=== PATIENT | male | born 1990 ===

== ENCOUNTER → 2017-08-12 | Emergency (ER) | payer OTHER ==
[~2017-08-12] VITALS: Ht 175.3 cm; Wt 99.8 kg
[~2017-08-12] MED LIST: DOLOGESIC 500-1 EACH PO; GILTUSS COUGH-118 ML PO
== END | disposition home or self-care (01) ==
LOC: ER 12:45
DX: B34.9 Viral infection, unspecified (principal)

== ENCOUNTER 2017-08-13 20:49 | Emergency (ER) | payer OTHER ==
[~2017-08-13] VITALS: Ht 175.3 cm; Wt 99.8 kg
[2017-08-14] MEDS ORDERED: DOLOGESIC 500-1 EACH PO (04:00)
[2017-08-14] MEDS ORDERED: GILTUSS COUGH-118 ML PO (04:00)
== END 2017-08-14 03:58 | disposition home or self-care (01) ==
LOC: ER 20:49
DX: J11.1 Influenza due to unidentified influenza virus with other respiratory manifestations (principal); K52.9 Noninfective gastroenteritis and colitis, unspecified

== ENCOUNTER 2022-03-14 21:04 | Emergency (ER) | payer OTHER ==
[~2022-03-14] VITALS: Ht 175.3 cm; Wt 99.8 kg
[2022-03-15] MEDS ORDERED: TAMS0.4C PO (04:20)
[2022-03-15] MEDS ORDERED: ULTRAM50 MG PO (04:20)
[2022-03-15] MEDS ORDERED: CEPHALEXIN500 MG PO (04:20)
== END 2022-03-15 04:32 ==
LOC: ER 21:04
DX: N20.1 Calculus of ureter (principal); Z87.442 Personal history of urinary calculi; N39.0 Urinary tract infection, site not specified

== ENCOUNTER 2022-03-17 11:51 | Emergency (ER) | payer OTHER ==
[~2022-03-17] VITALS: Ht 175.3 cm; Wt 99.8 kg
[~2022-03-17 11:51] MED LIST changes: +CEPHALEXIN500 MG PO; +TAMS0.4C PO; +ULTRAM50 MG PO
[2022-03-17] MEDS ORDERED: CIPRO250 MG PO (20:06)
[2022-03-17] MEDS ORDERED: ZOFRAN8 MG PO (20:06)
[2022-03-17] MEDS ORDERED: KETO10TA2 PO (20:06)
[2022-03-17] MEDS ORDERED: PEPCID AC20 MG PO (20:06)
== END 2022-03-17 20:11 | disposition home or self-care (01) ==
LOC: ER 11:51
DX: K29.70 Gastritis, unspecified, without bleeding (principal); R11.10 Vomiting, unspecified; N20.1 Calculus of ureter

== ENCOUNTER 2022-04-11 11:25 | Inpatient (IN) | payer OTHER ==
[~2022-04-11] VITALS: Ht 152.4 cm; Wt 97.5 kg
[~2022-04-11 11:25] MED LIST changes: +CIPRO250 MG PO; +KETO10TA2 PO; +PEPCID AC20 MG PO; +ZOFRAN8 MG PO
[2022-04-11] MEDS ORDERED: SULFAMETHOXAZOL20 ML PO (12:26)
[2022-04-11] MEDS ORDERED: MUPIROCIN15 GM TOP (12:27)
--- NOTE | 2022-04-11 12:28 | NUR ---
PTE AMBULANDO. REFIERE EL REMY 04/06/22 LE COMENZARON A SALIR ABSESOS EN PIERNA DERECHA, AREA DE GLUTEO Y EL MAS DOLOROSO Y REX EN TESTICULO.REFIERE DOLOR CONTINUO.
--- NOTE | 2022-04-11 13:16 | NUR ---
SE RECIBE PTE MASCULINO DE 32 YRS ALERTA CONCIENT Y TRANQUILO . ES EVALUADO POR EL LINDA WARE QUIE ORDENA TRTAMINETO LA CUAL SE EJECUTA. SE MANTIENE BAJO OBSERVACION.
== END 2022-04-16 15:56 | disposition home or self-care (01) | DRG 603 ==
LOC: ER 11:25 → MEDI 21:23 → ICU-2 21:23 → SEC-K 21:59 → MEDJ 23:19 → MEDI 04-12 07:31
PROVIDERS: ADMIT Internal Medicine; ATTEND Internal Medicine
PROC: 0V95XZZ Drainage of Scrotum, External Approach (ICD-10-PCS; principal; 2022-04-11)
DX: L08.89 Other specified local infections of the skin and subcutaneous tissue (principal); N49.2 Inflammatory disorders of scrotum; L02.32 Furuncle of buttock; L73.9 Follicular disorder, unspecified; L01.02 Bockhart's impetigo; B95.61 Methicillin susceptible Staphylococcus aureus infection as the cause of diseases classified elsewhere

== ENCOUNTER 2022-11-28 02:38 | Emergency (ER) | payer OTHER ==
[~2022-11-28] VITALS: Ht 175.3 cm; Wt 102.1 kg
[~2022-11-28 02:38] MED LIST changes: +MUPIROCIN15 GM TOP; +SULFAMETHOXAZOL20 ML PO
== END 2022-11-28 08:14 | disposition left against medical advice (07) ==
LOC: ER 02:38
DX: Z53.21 Procedure and treatment not carried out due to patient leaving prior to being seen by health care provider (principal)

== ENCOUNTER 2023-01-11 10:42 | Inpatient (IN) | payer OTHER ==
[~2023-01-11] VITALS: Ht 175.3 cm; Wt 99.8 kg
== END 2023-01-14 13:48 | disposition home or self-care (01) | DRG 392 ==
LOC: ER 10:42 → SURH 22:11 → SEC-K 22:11 → SURH 01-12 09:27
PROVIDERS: Emergency Medicine; General Practice; ADMIT Internal Medicine; ATTEND Internal Medicine
PROC: BW21ZZZ Computerized Tomography (CT Scan) of Abdomen and Pelvis (ICD-10-PCS; principal; 2023-01-11)
DX: K57.32 Diverticulitis of large intestine without perforation or abscess without bleeding (principal); K29.00 Acute gastritis without bleeding; Z20.822 Contact with and (suspected) exposure to COVID-19